=== PATIENT | male | born 1945 | race Caucasian/White ===

== ENCOUNTER 2021-11-21 09:13 | Emergency (ER) | payer OTHER, SELFPAY ==
[2021-11-21 09:39] VITALS: BP 157/103; PULSE 81; RESP 18; TEMP 36.8; O2SAT 97; BMI 26.6
[2021-11-21 11:17] VITALS: BP 138/82; PULSE 81; RESP 18; O2SAT 99
[2021-11-21] MEDS: IBUPROFEN 400 MG TABLET 800 MG PO (13:59)
[2021-11-21] MEDS: LIDOCAINE 1% (PF) 5 ML 10 ML INJ (13:59)
[2021-11-21 16:08] VITALS: BP 145/70; PULSE 60; RESP 18; O2SAT 99
--- NOTE | 2021-11-21 16:43 | ED.SKABFB ---
HPI - Skin/Abscess/Foreign Bdy <Karina Ocampo PA-C - Last Filed: 11/21/21 16:55> General Chief complaint: Skin/Abscess/Foreign Body Stated complaint: stated-needs fluid sack lanced before surgery Time Seen by Provider: 11/21/21 09:16 Source: patient Mode of arrival: Ambulatory Limitations: no limitations History of Present Illness HPI narrative: 76-year-old male with no reported past medical history presents to the ED with 5 days of a painful right shoulder lesion. Patient states that he has had a lump on his right shoulder for several years, however 5 days ago it started being painful, red, more swollen. Patient states that he has not had the lump evaluated by provider until today. Patient denies fever, chills, chest pain, shortness of breath, nausea, vomiting. Patient denies any drainage from the lump. Related Data Allergies Allergy/AdvReac Type Severity Reaction Status Date / Time No Known Drug Allergies Allergy Verified 11/21/21 09:44 Review of Systems <Karina Ocampo PA-C - Last Filed: 11/21/21 16:55> Review of Systems ROS Unobtainable: All systems reviewed & are unremarkable except as noted in HPI and below Constitutional Constitutional: Denies chills, Denies fatigue, Denies fever(s), Denies frequent falls, Denies lethargy and Denies weakness Eyes Eyes: Denies change in vision, Denies eye discharge, Denies irritation and Denies loss of vision ENT Ears, Nose, Mouth, and Throat: Denies change in voice, Denies dizziness, Denies neck pain, Denies sore throat and Denies throat swelling Cardiovascular Cardiovascular: Denies chest pain, Denies irregular heart rhythm, Denies lightheadedness, Denies palpitations, Denies dyspnea, Denies dyspnea on exertion and Denies orthopnea Respiratory Respiratory: Denies cough, Denies dyspnea, Denies dyspnea on exertion and Denies wheezing Gastrointestinal Gastrointestinal: Denies abdominal pain, Denies change in bowel habits, Denies diarrhea, Denies nausea and Denies vomiting Genitourinary Genitourinary: Denies hematuria, Denies flank pain, Denies urinary incontinence and Denies urinary urgency Musculoskeletal Musculoskeletal: Denies back pain, Denies muscle weakness, Denies neck pain, Denies numbness and Denies tingling Integumentary/Breasts Skin/Breast: Denies pruritus, Denies erythema, Denies rash and Denies wounds Comments: Lump on R shoulder, painful, redness, swollen Neurologic Neurologic: Denies behavioral changes, Denies confusion, Denies dizziness, Denies frequent falls, Denies loss of vision, Denies numbness, Denies tingling and Denies weakness Psychiatric Psychiatric: Denies anxiety, Denies behavioral changes, Denies confusion, Denies depression, Denies homicidal ideation and Denies suicidal ideation Endocrine Endocrine: Denies fatigue, Denies flushing and Denies palpitations Hematologic/Lymphatic Hematologic/Lymphatic: Denies easy bruising Allergic/Immunologic Allergic/Immunologic: Denies urticaria, Denies throat swelling and Denies wheezing Patient History <Karina Ocampo PA-C - Last Filed: 11/21/21 16:55> Social History Smoking Status: Former smoker Smoking Status: Former smoker alcohol intake frequency: 0-2 drinks per day Substance Use Type: does not use Exam <Karina Ocampo PA-C - Last Filed: 11/21/21 16:55> Initial Vital Signs Initial Vital Signs: Vital Signs Temperature 98.3 F 11/21/21 09:39 Pulse Rate 81 11/21/21 09:39 Respiratory Rate 18 11/21/21 09:39 Blood Pressure 157/103 H 11/21/21 09:39 Pulse Oximetry 97 11/21/21 09:39 Const General: cooperative, healthy appearing and comfortable [facility] Head: normal to inspection Eyes General: Yes appearance normal, both eyes and all related structures Neck Neck: normal visual inspection Chest Chest: normal inspection of the chest Resp Effort & Inspection: normal respiratory effort Auscultation: clear to auscultation bilaterally Cardio Rate: regular rate Rhythm: regular rhythm Back/Spine/Pelvis Back: normal to inspection Skin Other: 6 cm circular, raised, erythematous lesion, tender to palpation. Indurated, fluctuant. Small dot of pus oozing. No surrounding erythema. Neuro General: patient alert, patient awake and patient oriented x3 Psych Appearance: grossly normal Mental Status: mental status grossly normal <Phill Crump DO - Last Filed: 11/26/21 01:35> Initial Vital Signs Initial Vital Signs: Vital Signs Temperature 98.3 F 11/21/21 09:39 Pulse Rate 81 11/21/21 09:39 Respiratory Rate 18 11/21/21 09:39 Blood Pressure 157/103 H 11/21/21 09:39 Pulse Oximetry 97 11/21/21 09:39 Procedures <Karina Ocampo PA-C - Last Filed: 11/21/21 16:55> Abscess I/D I&D #1: Site: back Side (if applicable): right Local Anesthetic: lidocaine 1% Amount of anesthesia used (mL): 6 Technique: incised with #11 blade Amount of fluid expressed (mL): 5 Irrigation: No Packing used?: iodoform Course <Karina Ocampo PA-C - Last Filed: 11/21/21 16:55> Orders Ordered: Discontinued Medications Ibuprofen (Ibuprofen 400 Mg Tablet) 800 mg PO NOW ONE Stop: 11/21/21 13:42 Last Admin: 11/21/21 13:59 Dose: 800 mg Documented by: ATAYLOR Lidocaine HCl (Lidocaine 1% (Pf) 5 Ml) 10 ml INJ NOW ONE Stop: 11/21/21 13:45 Last Admin: 11/21/21 13:59 Dose: 10 ml Documented by: ATAYLOR Vital Signs Vital signs: Vital Signs - 8 hr 11/21/21 09:39 11/21/21 11:17 11/21/21 16:08 Temperature 98.3 F Pulse Rate 81 81 60 Respiratory Rate 18 18 18 Blood Pressure 157/103 H 138/82 145/70 H Pulse Oximetry 97 99 99 <Phill Crump DO - Last Filed: 11/26/21 01:35> Orders Ordered: Discontinued Medications Ibuprofen (Ibuprofen 400 Mg Tablet) 800 mg PO NOW ONE Stop: 11/21/21 13:42 Last Admin: 11/21/21 13:59 Dose: 800 mg Documented by: ATAYLOR Lidocaine HCl (Lidocaine 1% (Pf) 5 Ml) 10 ml INJ NOW ONE Stop: 11/21/21 13:45 Last Admin: 11/21/21 13:59 Dose: 10 ml Documented by: ATAYLOR Vital Signs Vital signs: Vital Signs - 8 hr 11/21/21 09:39 11/21/21 11:17 11/21/21 16:08 Temperature 98.3 F Pulse Rate 81 81 60 Respiratory Rate 18 18 18 Blood Pressure 157/103 H 138/82 145/70 H Pulse Oximetry 97 99 99 MDM - Skin/Abscess/Foreign Bdy <Karina Ocampo PA-C - Last Filed: 11/21/21 16:55> [facility] Narrative Medical decision making narrative: 76-year-old male with no reported past medical history presents to the ED with 5 days of a painful right shoulder lesion. Concern for abscess versus sebaceous cyst versus other lesion. Lesion was incised and drained, 2 jaziel placed for continued drainage. Patient instructed to get the week removed and replaced every 24-48 hours until the drainage stops. No antibiotics indicated at this spine, given surrounding erythema. Agrees to also follow-up with a lactation nurse for further evaluation treatment of the cyst. ED return precautions were discussed with patient. Patient verbalized understanding. Discharge Plan Departure Patient Disposition: Home Clinical Impression: Abscess of skin or subcutaneous tissue Instructions: DI for Skin Abscess Activity Restrictions/Additional Instructions: You were evaluated in the ED today for a skin abscess. The abscess was incised and drained, 2 weeks put in for continued drainage. It is likely that the initial lump you had was a sebaceous cyst. Please follow-up with a lactation nurse to evaluate and treat the cyst. You will need to have the weeks removed and replaced every 24-48 hours until you stop draining. You may return to the ED or go to a walk-in clinic or your primary care provider to have that done. Return to the ED if you have worsening pain, swelling, fever, chills, nausea, vomiting. Referrals: Zain Fang ARNP [Primary Care Provider] - <Phill Crump DO - Last Filed: 11/26/21 01:35> [facility] Felipaature Attestation: I was immediately available in the department for consultation. This documentation has been reviewed and I agree with assessment and plan. Supervised by Phill Crump DO
== END 2021-11-21 16:07 | disposition home or self-care (01) ==
PROVIDERS: Emergency Provider Student in an Organized Health Care Education/Training Program; PCP Nurse Practitioner Family
DX: L02.413 Cutaneous abscess of right upper limb (principal)
CPT/HCPCS: 10060; 99283